=== PATIENT | male | born 1935 | race Caucasian/White ===

== ENCOUNTER 2017-12-01 00:30 | Emergency (ER) | payer MEDICARE, MEDICAID ==
[~2017-12-01] VITALS: Ht 177.8 cm; Wt 81.6 kg
[2017-12-01] MEDS ORDERED: NORVASC2.5 MG ORAL (00:34)
[2017-12-01] MEDS ORDERED: TRAMADOL HCL50 MG ORAL (00:34)
[2017-12-01 00:35] VITALS: BP 150/68
[2017-12-01 01:15] VITALS: BP 134/71
[2017-12-01 01:15] LABS: BASOPHILS % (AUTO) 0.4 % (0.0-2.0); EOSINOPHILS % (AUTO) 0.1 % (0.0-3.0); HEMATOCRIT 43.4 % (42.0-52.0); HEMOGLOBIN 14.7 G/DL (14.2-18.0); LYMPHOCYTES % (AUTO) 12.4 % (20.0-45.0); MEAN CORPUSCULAR VOLUME 95 FL (80-99); MONOCYTES % (AUTO) 2.9 % (1.0-10.0); NEUTROPHILS % (AUTO) 84.3 % (45.0-75.0); PLATELET COUNT 177 K/UL (150-450); RED BLOOD COUNT 4.58 M/UL (4.70-6.10); RED CELL DISTRIBUTION WIDTH 11.7 % (11.6-14.8)
[2017-12-01] MEDS ORDERED: Mylanta II UD 30ml ORAL ONE (01:15)
[2017-12-01 01:27] LABS: ANION GAP 10 mmol/L (5-15); BLOOD UREA NITROGEN 20 mg/dL (7-18); CALCIUM 9.5 MG/DL (8.5-10.1); CARBON DIOXIDE 27 MMOL/L (21-32); CHLORIDE 96 MMOL/L (98-107); CREATININE 0.8 MG/DL (0.55-1.30); POTASSIUM 3.7 MMOL/L (3.5-5.1); SODIUM 133 MMOL/L (136-145)
[2017-12-01 01:42] LABS: ALANINE AMINOTRANSFERASE 8 U/L (12-78); ALBUMIN 3.9 G/DL (3.4-5.0); ALBUMIN/GLOBULIN RATIO 1.1 (1.0-2.7); ALKALINE PHOSPHATASE 111 U/L (46-116); ASPARTATE AMINO TRANSFERASE 20 U/L (15-37); BILIRUBIN,TOTAL 0.5 MG/DL (0.2-1.0); CKMB 2.2 NG/ML (0.0-3.6); CREATINE KINASE 102 U/L (26-308)
[2017-12-01] MEDS ORDERED: PEPCID40 MG PO (02:39)
[2017-12-01] MEDS ORDERED: MAALOX ADVANCE770 ML PO (02:39)
--- NOTE | 2017-12-01 02:50 | Emergency Room Report ---
History of Present Illness General Chief Complaint: Chest Pain Source: Patient, Family Member, EMS Present Illness HPI 82-year-old male presents with burning epigastric chest wall pain for one day. Pain nonradiating, no associated shortness of breath or sweating or nausea or vomiting or diarrhea. No fever or chills. 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 Allergies: Coded Allergies: No Known Allergies (Unverified , 12/01/17) Patient History Past Medical History: none Past Surgical History: none Pertinent Family History: none Social History: Denies: smoking, alcohol use, drug use Immunizations: UTD Reviewed Nursing Documentation: PMH: Agreed; PSxH: Agreed Nursing Documentation-PMH Past Medical History: No History, Except For Hx Hypertension: Yes Review of Systems All Other Systems: negative except mentioned in HPI Physical Exam Vital Signs Date Time Temp Pulse Resp B/P (MAP) Pulse Ox O2 Delivery O2 Flow Rate FiO2 12/01/17 00:29 98.0 66 18 186/75 98 Room Air 98.1 Sp02 EP Interpretation: reviewed, normal General Appearance: normal inspection, well appearing, no apparent distress, alert, GCS 15, non-toxic Head: normocephalic, atraumatic Eyes: bilateral eye PERRL, bilateral eye EOMI, bilateral eye other - Glaucoma of right eye, pupil is nonreactive ENT: normal ENT inspection, hearing grossly normal, normal pharynx, no angioedema, normal voice, TMs + canals normal, uvula midline, moist mucus membranes Neck: normal inspection, full range of motion, supple, thyroid normal, no meningismus, no bony tend Respiratory: normal inspection, lungs clear, normal breath sounds, no rhonchi, no respiratory distress, no retraction, no accessory muscle use, no wheezing, speaking full sentences Cardiovascular #1: regular rate, rhythm, no edema, no JVD, normal capillary refill Gastrointestinal: normal inspection, normal bowel sounds, non tender, soft, no mass, no peritonitis, non-distended, no guarding, no hernia, no pulsatile mass Genitourinary: no CVA tenderness Musculoskeletal: normal inspection, back normal, normal range of motion, no calf tenderness, pelvis stable, Parveen's Sign negative Neurologic: normal inspection, alert, oriented x3, responsive, 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 Labs unremarkable, troponin 0 ECG is nonischemic, bifascicular block likely chronic Patient feels better after GI cocktail Tolerating by mouth in the ER Will prescribe Pepcid, Maalox when necessary Close primary care follow-up ER course: Patient has remained stable during ED stay. Disposition: Patient is to be discharged to home. Prescriptions given are malox, pepcid Patient is instructed to follow up with their primary care doctor within 5 days. Strict return precautions discussed with patient such as fever, chills, worsening/severe pain, nausea, vomiting, which may indicate severe illness. Patient verbalizes understanding and agrees with plan. Please note that this Emergency Department Report was dictated using [employer] system operator technology software, occasionally this can lead to erroneous entry secondary to interpretation by the dictation equipment EKG Diagnostic Results Rate: normal Rhythm: other - Bifasciular block ST Segments: no acute changes ASA given to the pt in ED: No Rhythm Strip Diag. Results EP Interpretation: yes Rate: 70 Rhythm: NSR, no PVC's, no ectopy Chest X-Ray Diagnostic Results Chest X-Ray Diagnostic Results : Chest X-Ray Ordered: Yes Indication: Chest Pain EP Interpretation: Yes Interpretation: no consolidation, no effusion, no pneumothorax, no acute cardiopulmonary disease Impression: No acute disease Electronically Signed by: Dr Anya Gunn MD Last Vital Signs Date Time Temp Pulse Resp B/P (MAP) Pulse Ox O2 Delivery O2 Flow Rate FiO2 12/01/17 00:40 67 12 Room Air 12/01/17 00:35 98.1 150/68 97 98.1 Status: improved Disposition: HOME, SELF-CARE Condition: Improved Scripts Mag Hydrox/Al Hydrox/Simeth (Maalox Advanced Suspension) 355 Ml Oral.susp 5 ML PO TID for 7 Days, #1 UNIT Prov: ANYA GUNN M.D. 12/01/17 Famotidine (PEPCID) 40 Mg Tablet 40 MG PO DAILY for 7 Days, #14 TAB 0 Refills Prov: ANYA GUNN M.D. 12/01/17 Referrals: SABINE PRYOR MD (PCP) Patient Instructions: Nonspecific Chest Pain, Heartburn Additional Instructions: - Take pepcid every day as needed for "burning chest pain" - Maalox as needed as well - Follow up with primary care doctor in 2-3 days ANYA GUNN M.D. Dec 01, 2017 02:50
[2017-12-01 02:55] VITALS: BP 132/69
[2017-12-01 03:00] VITALS: BP 132/69
--- NOTE | 2017-12-01 08:53 | Diagnostic Imaging Report ---
Indication: Chest pain Technique: XRAY Chest 1v Comparison: None Findings: Cardiomediastinal silhouette is within normal limits. Atherosclerotic changes are seen. Mild linear bibasilar atelectasis is noted. Degenerative changes of the spine are noted. Impression: Mild linear bibasilar atelectasis. Otherwise no obvious acute cardiopulmonary disease.
--- NOTE | 2017-12-03 19:21 | Cardiology Report ---
APPROVED REPORT EKG Measurement Heart [id number] IN [id number] [id number] Normal sinus rhythm Right bundle branch block Left anterior fascicular block Bifascicular block Abnormal ECG
== END 2017-12-01 03:00 | disposition home or self-care (01) ==
LOC: EDBD 00:30 → EMR 00:35 → CANBEDREQ 01:47 → EMR 03:00
DX: R07.9 Chest pain, unspecified (principal); I10 Essential (primary) hypertension
CPT/HCPCS: 36415; 71045; 80053; 82550; 82553; 84484; 85025; 93005; 96374; 99284; S0028